=== PATIENT | male | born 1955 | race Caucasian/White ===

== ENCOUNTER 2017-12-25 18:06 | Inpatient (IN) | payer OTHER ==
[2017-12-25 20:06] VITALS: BMI 30.7
--- NOTE | 2017-12-25 20:55 | HP ---
CIWA Score - CIWA Score Nausea/Vomitin-No Nausea/No Vomiting Muscle Tremors: 2 Anxiety: 3 Agitation: 3 Paroxysmal Sweats: 2 Orientation: 0-Oriented Tacttile Disturbances: 1-Very Mild Itch/Numbness Auditory Disturbances: 0-None Visual Disturbances: 1-Very Mild Sensitivity Headache: 0-None Present CIWA-Ar Total Score: 12 Admission ROS BHS - HPI Chief Complaint: alcohol withdrawal symptoms Allergies/Adverse Reactions: Allergies Allergy/AdvReac Type Severity Reaction Status Date / Time morphine Allergy Swelling Verified 12/25/17 20:56 Tetanus Vaccines and Toxoid Allergy Swelling Verified 12/25/17 20:56 History of Present Illness: 62 yo male with hx of alcohol marijuana, cocaine, and alcohol dependence here seeking. Reports no prior detox treatment. Last rehab 1989, [facility]. Patient reports he was seen at the [facility] emergency department on 12/22/17, after he suffered a fall and hit his face while intoxicated. PMHX: Hyperthyroidism and depression. Denies suicidal / homicidal ideation or hx of suicide attempt. Denies hx of seizures. Reports hx of frequent blackouts, does not recall last episode. Longest period of sobriety 12 years. Exam Limitations: No Limitations - Ebola screening Have you traveled outside of the country in the last 21 days: No Have you had contact with anyone from an Ebola affected area: No Have you been sick,other than usual withdrawal symptoms: No Do you have a fever: No - Review of Systems Constitutional: Chills, Unintentional Wgt. Loss (10 lbs in past two months) EENT: reports: Other (ierythema to nose past monday seen at [facility], [place], operated by [facility]. Double vision attributes to hyperthyroid) Respiratory: reports: No Symptoms reported Cardiac: reports: No Symptoms Reported GI: reports: Poor Appetite, Poor Fluid Intake : reports: No Symptoms Reported Musculoskeletal: reports: No Symptoms Reported Integumentary: reports: See HPI Neuro: reports: No Symptoms reported Endocrine: reports: See HPI, Increased Thirst Hematology: reports: No Symptoms Reported Psychiatric: reports: Orientated x3, Depressed Other Systems: Reviewed and Negative Patient History - Patient Medical History Hx Anemia: No Hx Asthma: No Hx Chronic Obstructive Pulmonary Disease (COPD): No Hx Cancer: No Hx Cardiac Disorders: No Hx Congestive Heart Failure: No Hx Hypertension: No Hx Hypercholesterolemia: No Hx Pacemaker: No HX Cerebrovascular Accident: No Hx Seizures: No Hx Dementia: No Hx Diabetes: No Hx Gastrointestinal Disorders: No Hx Liver Disease: No Hx Genitourinary Disorders: No Hx Sexually Transmitted Disorders: No Hx Renal Disease (ESRD): No Hx Thyroid Disease: Yes (Hyperthyroid on meds ) Hx Human Immunodeficiency Virus (HIV): No ( 1980s neg results , declines testing ) Hx Hepatitis C: Yes (treated 2016) Hx Depression: Yes Hx Suicide Attempt: No Hx Bipolar Disorder: No Hx Schizophrenia: No - Patient Surgical History Past Surgical History: Yes Hx Neurologic Surgery: No Hx Cataract Extraction: No Hx Cardiac Surgery: No Hx Lung Surgery: No Hx Breast Surgery: No Hx Breast Biopsy: No Hx Abdominal Surgery: No Hx Appendectomy: No Hx Cholecystectomy: No Hx Genitourinary Surgery: No Hx Orthopedic Surgery: Yes (bilteral rotator cuff repain 12 years ago, heel spur left seven 2010) - PPD History Previous Implant?: No Documented Results: Negative w/o proof PPD to be Administered?: Yes - Smoking Cessation Smoking history: Former smoker Have you smoked in the past 12 months: No Hx Chewing Tobacco Use: No Initiated information on smoking cessation: No - Substance & Tx. History Hx Alcohol Use: Yes Hx Substance Use: Yes Substance Use Type: Alcohol, Cocaine Hx Substance Use Treatment: Yes (Reports no prior detox treatment. Last rehab 1989, [place] in [facility]) - Substances Abused Alcohol Route: Oral Frequency: Daily Amount used: 12 - 18 x 12 oz beers Age of first use: 13 Date of Last Use: 12/22/17 Cocaine Route: Inhalation Frequency: Daily Amount used: 1 gram Age of first use: 16 Date of Last Use: 12/22/17 Family Disease History - Family Disease History Family Disease History: Other: Brother (alive cocaine, alcoholism ) Admission Physical Exam S - Vital Signs Vital Signs: Vital Signs - 24 hr 12/25/17 20:02 Temperature 97.0 F L Pulse Rate 110 H Respiratory 18 Rate Blood Pressure 149/100 - Physical General Appearance: Yes: Disheveled, Mild Distress, Obese, Sweating, Anxious HEENTM: Yes: EOMI, Hearing grossly Normal, Normocephalic, Normal Voice, [place], Pharynx Normal, Tm's normal, Other (upper lip swelling, erythema on nose) Respiratory: Yes: Chest Non-Tender, Lungs Clear, Normal Breath Sounds, No Respiratory Distress, No Accessory Muscle Use Neck: Yes: Within Normal Limits Breast: Yes: Breast Exam Deferred Cardiology: Yes: Regular Rhythm, Tachycardia Abdominal: Yes: Normal Bowel Sounds, Non Tender, Soft, Protuberent Genitourinary: Yes: Within Normal Limits Back: Yes: Normal Inspection Musculoskeletal: Yes: full range of Motion, Gait Steady, Pelvis Stable Extremities: Yes: Normal Capillary Refill, Normal Inspection, Normal Range of Motion, Non-Tender Neurological: Yes: refrigeration lead II-XII NML intact, Fully Oriented, Alert, Motor Strength 5/5, Depressed Affect Integumentary: Yes: Normal Color, Warm, Diaphoresis Lymphatic: Yes: Within Normal Limits - Diagnostic (1) History of fall Current Visit: Yes Status: Acute (2) History of double vision Current Visit: Yes Status: Chronic (3) Alcohol dependence with withdrawal Current Visit: Yes Status: Acute Qualifiers: Complication of substance-induced condition: uncomplicated Qualified Code(s ): F10.230 - Alcohol dependence with withdrawal, uncomplicated (4) Hyperthyroidism Current Visit: Yes Status: Chronic (5) Obese Current Visit: Yes Status: Chronic Qualifiers: Obesity type: unspecified obesity type Obesity classification: adult class 1 (BMI 30 - 34.9) Body mass index: BMI 30.0-30.9 Cleared for Admission [facility] - Detox or Rehab [facility] Level of Care: Medically Managed Detox Regimen/Protocol: Librium [facility] Breath Alcohol Content Breath Alcohol Content: 0 Urine Drug Screen - Results Drug Screen Negative: No Urine Drug Screen Results: THC-Marijuana, CARRIE-Cocaine, BZO-Benzodiazepines, OXY- Oxycodone
[2017-12-25] MEDS ORDERED: P-EPHED 60MG/TRIPROLIDI 2.5MG TABLET PO PRN (21:12)
[2017-12-25] MEDS ORDERED: LOPERAMIDE HCL 2 MG CAPSULE PO PRN (21:12)
[2017-12-25] MEDS ORDERED: IBUPROFEN 400 MG TABLET (FP) PO PRN (21:12)
[2017-12-25] MEDS ORDERED: MAGNESIUM HYDROX 2400MG/30ML ORAL SUSPENSION 30 ML CUP PO PRN (21:12)
[2017-12-25] MEDS ORDERED: MENTHOL/PHENOL 1 EACH UD MM PRN (21:12)
[2017-12-25] MEDS ORDERED: MAGNESIUM CITRATE 300 ML BOTTLE PO PRN (21:12)
[2017-12-25] MEDS ORDERED: chlordiazePOXIDE HCL 25 MG CAPSULE PO PRN (21:12)
[2017-12-25] MEDS ORDERED: ACETAMINOPHEN 325 MG TABLET (FP) PO PRN (21:12)
[2017-12-25] MEDS ORDERED: guaiFENesin/D-METHORPHAN HB 10 ML UNIT-DOSE CUPS PO PRN (21:12)
[2017-12-25] MEDS ORDERED: MELATONIN 5 MG TABLETS PO PRN (22:00)
[2017-12-26] MEDS: THIAMINE HCL 100 MG TABLET (FP) PO SCH ×2 (05:12→22:10)
[2017-12-26] MEDS: chlordiazePOXIDE HCL 25 MG CAPSULE PO SCH ×5 (05:12→22:10)
[2017-12-26 10:14] LABS: HEMATOCRIT 43.1 % (35.4-49); HEMOGLOBIN 14.4 GM/dL (11.7-16.9); MCH 31.2 pg (25.7-33.7); MCHC 33.5 g/dl (32.0-35.9); MEAN CELL VOLUME 93.3 fl (80-96); MEAN PLT VOLUME 7.6 fl (7.5-11.1); PLATELET COUNT 377 K/MM3 (134-434); RBC 4.62 M/mm3 (4.00-5.60); RDW 13.6 % (11.9-15.9); WHITE BLOOD COUNT 8.4 K/mm3 (4.0-10.0)
[2017-12-26] MEDS: PRENATAL VITAMINS W/ FOLIC ACID TABLET (FP) PO SCH (10:29)
[2017-12-26] MEDS: MAG HYDROX/AL HYDROX/SIMETH 30 ML UNIT-DOSE CUP PO PRN ×2 (10:30→22:11)
[2017-12-26 10:31] LABS: CHLORIDE 102 mmol/L (98-107); POTASSIUM 4.1 mmol/L (3.5-5.1); SODIUM 142 mmol/L (136-145)
[2017-12-26] MEDS: METHIMAZOLE 5 MG TABLET (FP) PO SCH (10:56)
[2017-12-26 11:01] LABS: ALBUMIN 3.4 g/dl (3.4-5.0); ALK PHOS 59 U/L (45-117); ANION GAP 11 MMOL/L (8-16); BILIRUBIN,TOTAL 0.9 mg/dL (0.2-1); BLOOD UREA NITROGEN 10 mg/dL (7-18); CALCIUM 8.8 mg/dL (8.5-10.1); CO2 29 mmol/L (21-32); CREATININE 0.9 mg/dL (0.55-1.3); GLUCOSE,RANDOM 108 mg/dL (74-106); SGOT/AST 19 U/L (15-37); SGPT/ALT 21 U/L (13-61); TOT PROT 6.3 g/dl (6.4-8.2)
--- NOTE | 2017-12-26 15:07 | PN ---
[facility] CIWA - CIWA Score Nausea/Vomitin-Mild Nausea/No Vomiting Muscle Tremors: 4-Moderate,w/Arms Extend Anxiety: 0-No Anxiety, at Ease Agitation: 0-Normal Activity Paroxysmal Sweats: No Perspiration Orientation: 0-Oriented Tacttile Disturbances: 0-None Auditory Disturbances: 0-None Visual Disturbances: 0-None Headache: 0-None Present CIWA-Ar Total Score: 5 BHS Progress Note (SOAP) Subjective: States feeling nauseous and shaky. Denies vomiting or diarrhea. States abrasion on nose was due to a fall prior to admission. Denies headache or pain. Objective: A&O x 3. Tremors of hands upon extension of arms. Abd S/NT. BS+. Abrasion on (L ) nares/bridge approx 8 mm circular w/ small amount of sero-sanguineous drainage. Respirations unlabored. Vital Signs 12/26/17 12/26/17 09:12 13:45 Temperature 97.9 F 97.2 F L Pulse Rate 97 H 75 Respiratory 16 16 Rate Blood Pressure 153/92 150/97 Lab Results WBC 8.4 K/mm3 (4.0-10.0) 12/26/17 07:50 RBC 4.62 M/mm3 (4.00-5.60) 12/26/17 07:50 Hgb 14.4 GM/dL (11.7-16.9) 12/26/17 07:50 Hct 43.1 % (35.4-49) 12/26/17 07:50 MCV 93.3 fl (80-96) 12/26/17 07:50 MCHC 33.5 g/dl (32.0-35.9) 12/26/17 07:50 RDW 13.6 % (11.9-15.9) 12/26/17 07:50 Plt Count 377 K/MM3 (134-434) 12/26/17 07:50 Sodium 142 mmol/L (136-145) 12/26/17 07:50 Potassium 4.1 mmol/L (3.5-5.1) 12/26/17 07:50 Chloride 102 mmol/L (98-107) 12/26/17 07:50 Carbon Dioxide 29 mmol/L (21-32) 12/26/17 07:50 Anion Gap 11 MMOL/L (8-16) 12/26/17 07:50 BUN 10 mg/dL (7-18) 12/26/17 07:50 Creatinine 0.9 mg/dL (0.55-1.3) 12/26/17 07:50 Random Glucose 108 mg/dL (74-106) H 12/26/17 07:50 Calcium 8.8 mg/dL (8.5-10.1) 12/26/17 07:50 Labs reviewed. Assessment: Withdrawal symptoms. Nasal Abrasion Plan: Continue w/ detox. Bacitracin to nasal abrasion BID and cover w/ bandaid if drainage present.
--- NOTE | 2017-12-26 16:45 | EKG ---
Test Reason : Blood Pressure : / mmHG Vent. Rate : 082 BPM Atrial Rate : 082 BPM P-R Int : 154 ms QRS Dur : 088 ms QT Int : 388 ms P-R-T Axes : 063 066 064 degrees QTc Int : 453 ms NORMAL SINUS RHYTHM NORMAL ECG WHEN COMPARED WITH ECG OF 26-DEC-2017 00:46, QRS AXIS SHIFTED LEFT Confirmed by Maico Perez ([id number]) on 12/26/2017 4:44:59 PM Referred By: Confirmed By:Maico Perez
--- NOTE | 2017-12-26 16:53 | CONSULT ---
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 Substance Abuse History: Confirmed by the patient in this interview.Details in current [facility] report : Smoking history: Former smoker. Have you smoked in the past 12 months: No. Hx Chewing Tobacco Use: No. Initiated information on smoking cessation: No. - Substance & Tx. History. Hx Alcohol Use: Yes. Hx Substance Use: Yes. Substance Use Type: Alcohol, Cocaine. Hx Substance Use Treatment: Yes (Reports no prior detox treatment. Last rehab 1989, [place] in [facility]). - Substances Abused. Alcohol. Route: Oral. Frequency: Daily. Amount used: 12 - 18 x 12 oz beers. Age of first use: 13. Date of Last Use: 12/22/17. Cocaine. Route: Inhalation. Frequency: Daily. Amount used: 1 gram. Age of first use: 16. Date of Last Use: 12/22/17 Medical History: Diabetes mellitus (diet-controlled),hyperthyroidism and a distant history of orthosurgery (bilateral rotator cuff repair). Psychiatric History: No reported history of psychiatric hospitalizations.Patient sees a private psychiatrist in [place] for medication management (celexa 40 mg/day).Diagnosed with MDD.Mr Jamil denies history of suicide attempts. Physical/Sexual Abuse/Trauma History: Stressors : separation from , loneliness (now living with his mother) and recent loss of employment (reasons not disclosed). Additional Comment: Urine Drug Screen Results: THC-Marijuana, CARRIE-Cocaine, BZO- Benzodiazepines, OXY-Oxycodone.Noted. Mental Status Exam - Mental Status Exam Alert and Oriented to: Time, Place, Person Cognitive Function: Good Patient Appearance: Well Groomed Mood: Sad, Withdrawn, Anxious Affect: Mood Congruent, Constricted Patient Behavior: Fatigued, Appropriate, Cooperative Speech Pattern: Clear, Appropriate Voice Loudness: Normal Thought Process: Intact, Goal Oriented Thought Disorder: Not Present Hallucinations: Denies Suicidal Ideation: Denies Homicidal Ideation: Denies Insight/Judgement: Poor Sleep: Well Appetite: Good Muscle strength/Tone: Normal Gait/Station: Normal Psychiatric Findings - Problem List ([place] 1, 2,3) (1) Alcohol dependence with withdrawal Status: Acute Qualifiers: Complication of substance-induced condition: uncomplicated Qualified Code(s ): F10.230 - Alcohol dependence with withdrawal, uncomplicated (2) Cocaine dependence Status: Acute Qualifiers: Substance use status: uncomplicated Qualified Code(s): F14.20 - Cocaine dependence, uncomplicated (3) Cannabis abuse Status: Acute (4) Substance induced mood disorder Status: Acute (5) Depressive disorder Status: Chronic Comment: As per self-report.On celexa 40 mg/day.Sees a private psychiatrist. - Initial Treatment Plan Initial Treatment Plan: Psychoeducation.Sleep hygiene.Detoxification.Celexa 20 mg po daily.Side effects/benefits discussed with the patient.Mr Jamil agrees to this careplan.Observation.
[2017-12-26 19:11] LABS: URINE APPEARANCE TURBID; URINE BILIRUBIN NEGATIVE (<2.0 mg/dL); URINE COLOR AMBER; URINE GLUCOSE (UA) NEGATIVE (NEGATIVE); URINE KETONE NEGATIVE (NEGATIVE); URINE LEUK ESTERASE NEGATIVE (NEGATIVE); URINE NITRITE NEGATIVE (NEGATIVE); URINE PROTEIN NEGATIVE (NEGATIVE); URINE UROBILINOGEN 4.0 E.U/dl mg/dL (0.2-1.0)
[2017-12-26] MEDS ORDERED: BACITRACIN 0.9 GM PACKET TP SCH (22:00)
[2017-12-26] MEDS: BACITRACIN 15 GM TUBE TOPICAL OINTMENT TP SCH (22:10)
[2017-12-27] MEDS: chlordiazePOXIDE HCL 25 MG CAPSULE PO SCH ×3 (06:00→17:40)
[2017-12-27] MEDS: BACITRACIN 15 GM TUBE TOPICAL OINTMENT TP SCH ×2 (10:25→22:09)
[2017-12-27] MEDS: CITALOPRAM HYDROBROMIDE 20 MG TABLET (FP) PO SCH (10:25)
[2017-12-27] MEDS: METHIMAZOLE 5 MG TABLET (FP) PO SCH (10:25)
[2017-12-27] MEDS: PRENATAL VITAMINS W/ FOLIC ACID TABLET (FP) PO SCH (10:25)
[2017-12-27] MEDS: MAG HYDROX/AL HYDROX/SIMETH 30 ML UNIT-DOSE CUP PO PRN ×2 (10:43→22:12)
--- NOTE | 2017-12-27 10:48 | PN ---
S CIWA - CIWA Score Nausea/Vomitin-No Nausea/No Vomiting Muscle Tremors: 4-Moderate,w/Arms Extend Anxiety: 4-Mod. Anxious/Guarded Agitation: 4-Moderately Restless Paroxysmal Sweats: 1-Minimal Palms Moist Orientation: 0-Oriented Tacttile Disturbances: 0-None Auditory Disturbances: 0-None Visual Disturbances: 0-None Headache: 0-None Present CIWA-Ar Total Score: 13 BHS Progress Note (SOAP) Subjective: PT REPORTS DECREASED WITHDRAWAL SX- SLIGHT ANXIETY,SWEATS. Objective: 12/27/17 10:47 Vital Signs 12/27/17 12/27/17 12/27/17 03:30 06:55 09:22 Temperature 97.2 F L 97.7 F Pulse Rate 75 80 Respiratory 20 18 18 Rate Blood Pressure 136/95 132/88 Laboratory Tests 12/26/17 12/26/17 12/26/17 07:50 07:50 07:50 WBC 8.4 RBC 4.62 Hgb 14.4 Hct 43.1 MCV 93.3 MCH 31.2 MCHC 33.5 RDW 13.6 Plt Count 377 MPV 7.6 Sodium 142 Potassium 4.1 Chloride 102 Carbon Dioxide 29 Anion Gap 11 BUN 10 Creatinine 0.9 Creat Clearance w eGFR > 60 Random Glucose 108 H Calcium 8.8 Total Bilirubin 0.9 AST 19 ALT 21 Alkaline Phosphatase 59 Total Protein 6.3 L Albumin 3.4 Urine Color Urine Appearance Urine pH Ur Specific [place] Urine Protein Urine Glucose (UA) Urine Ketones Urine Blood Urine Nitrite Urine Bilirubin Urine Urobilinogen Ur Leukocyte Esterase RPR Titer Nonreactive 12/26/17 17:30 WBC RBC Hgb Hct MCV MCH MCHC RDW Plt Count MPV Sodium Potassium Chloride Carbon Dioxide Anion Gap BUN Creatinine Creat Clearance w eGFR Random Glucose Calcium Total Bilirubin AST ALT Alkaline Phosphatase Total Protein Albumin Urine Color [place] Urine Appearance Turbid Urine pH 7.0 Ur Specific [place] 1.023 Urine Protein Negative Urine Glucose (UA) Negative Urine Ketones Negative Urine Blood Negative Urine Nitrite Negative Urine Bilirubin Negative Urine Urobilinogen 4.0 e.u/dl Ur Leukocyte Esterase Negative RPR Titer Assessment: 12/27/17 10:47 WITHDRAWAL SX Plan: CONTINUE DETOX
[2017-12-27] MEDS: THIAMINE HCL 100 MG TABLET (FP) PO SCH (22:08)
[2017-12-27] MEDS: chlordiazePOXIDE 5 MG CAPSULE PO SCH (22:08)
[2017-12-28] MEDS: chlordiazePOXIDE 5 MG CAPSULE PO SCH ×3 (05:40→17:59)
[2017-12-28] MEDS: CITALOPRAM HYDROBROMIDE 20 MG TABLET (FP) PO SCH (10:11)
[2017-12-28] MEDS: PRENATAL VITAMINS W/ FOLIC ACID TABLET (FP) PO SCH (10:11)
[2017-12-28] MEDS: METHIMAZOLE 5 MG TABLET (FP) PO SCH (10:11)
[2017-12-28] MEDS: BACITRACIN 15 GM TUBE TOPICAL OINTMENT TP SCH ×2 (10:11→22:11)
[2017-12-28] MEDS: MAG HYDROX/AL HYDROX/SIMETH 30 ML UNIT-DOSE CUP PO PRN (10:13)
--- NOTE | 2017-12-28 10:20 | PN ---
BHS Progress Note (SOAP) Subjective: DECREASED ANXIETY,SWEATS. REPORTS DETOX PROCEEDING WELL. Objective: 12/28/17 10:19 Vital Signs 12/28/17 12/28/17 12/28/17 03:30 06:15 09:49 Temperature 97.0 F L 96.9 F L Pulse Rate 82 87 Respiratory 18 18 18 Rate Blood Pressure 130/89 135/89 Laboratory Tests 12/26/17 12/26/17 12/26/17 07:50 07:50 07:50 WBC 8.4 RBC 4.62 Hgb 14.4 Hct 43.1 MCV 93.3 MCH 31.2 MCHC 33.5 RDW 13.6 Plt Count 377 MPV 7.6 Sodium 142 Potassium 4.1 Chloride 102 Carbon Dioxide 29 Anion Gap 11 BUN 10 Creatinine 0.9 Creat Clearance w eGFR > 60 Random Glucose 108 H Calcium 8.8 Total Bilirubin 0.9 AST 19 ALT 21 Alkaline Phosphatase 59 Total Protein 6.3 L Albumin 3.4 Urine Color Urine Appearance Urine pH Ur Specific [place] Urine Protein Urine Glucose (UA) Urine Ketones Urine Blood Urine Nitrite Urine Bilirubin Urine Urobilinogen Ur Leukocyte Esterase RPR Titer Nonreactive 12/26/17 17:30 WBC RBC Hgb Hct MCV MCH MCHC RDW Plt Count MPV Sodium Potassium Chloride Carbon Dioxide Anion Gap BUN Creatinine Creat Clearance w eGFR Random Glucose Calcium Total Bilirubin AST ALT Alkaline Phosphatase Total Protein Albumin Urine Color [place] Urine Appearance Turbid Urine pH 7.0 Ur Specific [place] 1.023 Urine Protein Negative Urine Glucose (UA) Negative Urine Ketones Negative Urine Blood Negative Urine Nitrite Negative Urine Bilirubin Negative Urine Urobilinogen 4.0 e.u/dl Ur Leukocyte Esterase Negative RPR Titer Assessment: 12/28/17 10:19 WITHDRAWAL SX Plan: CONTINUE DETOX
[2017-12-28] MEDS: chlordiazePOXIDE HCL 10 MG CAPSULE PO SCH (22:10)
[2017-12-28] MEDS: THIAMINE HCL 100 MG TABLET (FP) PO SCH (22:10)
[2017-12-29 06:21] VITALS: BP 135/81; PULSE 81; TEMP 98
[2017-12-29] MEDS: chlordiazePOXIDE HCL 10 MG CAPSULE PO SCH (06:26)
--- NOTE | 2017-12-29 15:21 | PN ---
BHS Progress Note (SOAP) Subjective: DETOX COMPLETED. ALERT O X 3, PT HAS PMD DR. MUSHTAQ BREAUX FOR MEDICAL MANAGEMENT AND ALSO PSYCH MD FOR MENTAL HEALTH WHO HE FOLLOWS UP WITH. Objective: 12/29/17 15:21 Vital Signs - 24 hr 12/28/17 12/28/17 12/29/17 17:19 22:00 00:30 Temperature 97.3 F L 97.0 F L Pulse Rate 91 H 77 Respiratory 18 18 18 Rate Blood Pressure 126/91 115/74 12/29/17 12/29/17 03:30 06:21 Temperature 98 F Pulse Rate 81 Respiratory 18 18 Rate Blood Pressure 135/81 Laboratory Tests 12/26/17 12/26/17 12/26/17 07:50 07:50 07:50 WBC 8.4 RBC 4.62 Hgb 14.4 Hct 43.1 MCV 93.3 MCH 31.2 MCHC 33.5 RDW 13.6 Plt Count 377 MPV 7.6 Sodium 142 Potassium 4.1 Chloride 102 Carbon Dioxide 29 Anion Gap 11 BUN 10 Creatinine 0.9 Creat Clearance w eGFR > 60 Random Glucose 108 H Calcium 8.8 Total Bilirubin 0.9 AST 19 ALT 21 Alkaline Phosphatase 59 Total Protein 6.3 L Albumin 3.4 Urine Color Urine Appearance Urine pH Ur Specific [place] Urine Protein Urine Glucose (UA) Urine Ketones Urine Blood Urine Nitrite Urine Bilirubin Urine Urobilinogen Ur Leukocyte Esterase RPR Titer Nonreactive 12/26/17 17:30 WBC RBC Hgb Hct MCV MCH MCHC RDW Plt Count MPV Sodium Potassium Chloride Carbon Dioxide Anion Gap BUN Creatinine Creat Clearance w eGFR Random Glucose Calcium Total Bilirubin AST ALT Alkaline Phosphatase Total Protein Albumin Urine Color [place] Urine Appearance Turbid Urine pH 7.0 Ur Specific [place] 1.023 Urine Protein Negative Urine Glucose (UA) Negative Urine Ketones Negative Urine Blood Negative Urine Nitrite Negative Urine Bilirubin Negative Urine Urobilinogen 4.0 e.u/dl Ur Leukocyte Esterase Negative RPR Titer Assessment: 12/29/17 15:21 MEDICALLY STABLE Plan: D/C PT TODAY
--- NOTE | 2017-12-29 15:23 | DS ---
[facility] Detox Discharge Summary Admission Date: 12/26/17 Discharge Date: 12/29/17 - History Present History: Alcohol Dependence, Cocaine Dependence Additional Comments: DETOX COMPLETED. ALERT O X 3. FOLLOW UP WITH PMD DR. MUSHTAQ BREAUX FOR MEDICAL MANAGEMENT. - Physical Exam Results Vital Signs: Vital Signs Temperature 98 F 12/29/17 06:21 Pulse Rate 81 12/29/17 06:21 Respiratory Rate 18 12/29/17 06:21 Blood Pressure 135/81 12/29/17 06:21 O2 Sat by Pulse Oximetry (%) Pertinent Admission Physical Exam Findings: WITHDRAWAL SX Laboratory Tests 12/26/17 12/26/17 12/26/17 07:50 07:50 07:50 WBC 8.4 RBC 4.62 Hgb 14.4 Hct 43.1 MCV 93.3 MCH 31.2 MCHC 33.5 RDW 13.6 Plt Count 377 MPV 7.6 Sodium 142 Potassium 4.1 Chloride 102 Carbon Dioxide 29 Anion Gap 11 BUN 10 Creatinine 0.9 Creat Clearance w eGFR > 60 Random Glucose 108 H Calcium 8.8 Total Bilirubin 0.9 AST 19 ALT 21 Alkaline Phosphatase 59 Total Protein 6.3 L Albumin 3.4 Urine Color Urine Appearance Urine pH Ur Specific [place] Urine Protein Urine Glucose (UA) Urine Ketones Urine Blood Urine Nitrite Urine Bilirubin Urine Urobilinogen Ur Leukocyte Esterase RPR Titer Nonreactive 12/26/17 17:30 WBC RBC Hgb Hct MCV MCH MCHC RDW Plt Count MPV Sodium Potassium Chloride Carbon Dioxide Anion Gap BUN Creatinine Creat Clearance w eGFR Random Glucose Calcium Total Bilirubin AST ALT Alkaline Phosphatase Total Protein Albumin Urine Color [place] Urine Appearance Turbid Urine pH 7.0 Ur Specific [place] 1.023 Urine Protein Negative Urine Glucose (UA) Negative Urine Ketones Negative Urine Blood Negative Urine Nitrite Negative Urine Bilirubin Negative Urine Urobilinogen 4.0 e.u/dl Ur Leukocyte Esterase Negative RPR Titer - Treatment Hospital Course: Detox Protocol Followed, Detoxed Safely, Responded well, Discharged Condition Good Patient has Accepted a Rehab Referral to: SEE COUNSELORS NOTE - Medication Discharge Medications: Ambulatory Orders Methimazole 5 mg PO DAILY 12/25/17 - Diagnosis (1) Alcohol dependence with withdrawal Status: Acute Qualifiers: Complication of substance-induced condition: uncomplicated Qualified Code(s ): F10.230 - Alcohol dependence with withdrawal, uncomplicated (2) Cocaine dependence Status: Acute Qualifiers: Substance use status: uncomplicated Qualified Code(s): F14.20 - Cocaine dependence, uncomplicated (3) History of fall Status: Chronic (4) Hyperthyroidism Status: Chronic (5) Obese Status: Chronic Qualifiers: Obesity type: unspecified obesity type Obesity classification: adult class 1 (BMI 30 - 34.9) Body mass index: BMI 30.0-30.9 - AMA Did Patient Leave Against Medical Advice: No
== END 2017-12-29 09:57 | disposition home or self-care (01) | DRG 897 ==
LOC: YASAS 18:06 → Y3N 12-26 00:24
PROC: HZ2ZZZZ Detoxification Services for Substance Abuse Treatment (ICD-10-PCS; principal; 2017-12-26)
DX: F10.230 Alcohol dependence with withdrawal, uncomplicated (principal); F14.20 Cocaine dependence, uncomplicated; F33.9 Major depressive disorder, recurrent, unspecified; F12.10 Cannabis abuse, uncomplicated; F19.24 Other psychoactive substance dependence with psychoactive substance-induced mood disorder; E11.9 Type 2 diabetes mellitus without complications; E05.90 Thyrotoxicosis, unspecified without thyrotoxic crisis or storm; I10 Essential (primary) hypertension; E66.9 Obesity, unspecified; Z68.30 Body mass index [BMI] 30.0-30.9, adult; Z91.81 History of falling; Z86.69 Personal history of other diseases of the nervous system and sense organs; Z88.7 Allergy status to serum and vaccine; Z88.5 Allergy status to narcotic agent
CPT/HCPCS: 36415; 80053; 81003; 85027; 86593; 93005; 93010